=== PATIENT | female | born 1965 | race Caucasian/White ===

== ENCOUNTER 2019-06-18 14:06 | Outpatient (REF) | payer MEDICARE, SELFPAY ==
[2019-06-18 14:47] LABS: Abs Immature Grans 0.02 k/cumm (0.0-0.09); Absolute Basophil Count 0.02 k/cumm (0.0-0.2); Absolute Eosinophil Count 0.13 k/cumm (0.0-0.7); Absolute Lymphocyte Count 0.87 k/cumm (1.2-3.4); Absolute Monocyte Count 0.37 k/cumm (0.11-0.7); Absolute Neutrophil Count 3.69 k/cumm (1.2-6.7); Basophils % 0.4; Eosinophils % 2.5; HCT 31.5 % (36.0-46.0); HGB 9.7 g/dL (12.0-15.5); Immature Grans % 0.4 %; Lymphocytes % 17.1; Mean Corp. HGB Concentration 30.8 g/dL (32.0-36.0); Mean Corpuscular Hemoglobin 24.7 pg (27.0-33.0); Mean Corpuscular Volume 80.4 fL (80-95); Mean Platelet Volume 10.6 fL (8.0-11.0); Monocytes % 7.3; Neutrophils % 72.3; RBC 3.92 m/cumm (4.00-5.20); RBC Distribution Width 18.8 % (11.7-14.6)
[2019-06-18 14:58] LABS: ALT 37 U/L (14-59); AST 50 U/L (15-37); Albumin 3.3 g/dL (3.4-5.0); Alkaline Phosphatase 130 U/L (46-116); BUN 44 mg/dL (7-18); Bilirubin, Total 1.7 mg/dL (0.2-1.0); CREATININE 1.62 mg/dL (0.55-1.02); Calcium 8.6 mg/dL (8.5-10.1); Chloride 98 mmol/L (98-107); Estimated GFR 32.87 (mL/min/1.73m2); Glucose 475 mg/dL (74-106); Potassium 4.5 mmol/L (3.5-5.1); Sodium 133 mmol/L (136-145)
[2019-06-18 15:09] LABS: Platelet Count 69 x1000/uL (130-400)
[2019-06-18 15:11] LABS: Anisocytosis 1+; Diff Comment RBC Morph Reviewed; Hypochromasia 1+; Microcytosis 1+; Polychromasia Present
[2019-06-18 15:12] LABS: Poikilocytes 1+
== END 2019-06-18 14:26 ==
LOC: LBN 14:06
PROVIDERS: Visit Provider Family Medicine
DX: D69.6 Thrombocytopenia, unspecified (principal); I25.10 Atherosclerotic heart disease of native coronary artery without angina pectoris; I50.32 Chronic diastolic (congestive) heart failure
CPT/HCPCS: 80053; 85025

== ENCOUNTER 2021-08-05 19:29 | Outpatient (REF) | payer MEDICARE, SELFPAY ==
[2021-08-05 19:18] LABS: Bilirubin Negative (Negative); Blood Large (Negative); Clarity Sl Cloudy (Clear); Glucose >=1000 mg/dL (Negative); Ketones Negative (Negative); Leukocyte Esterase Small (Negative); Nitrite Positive (Negative); Urobilinogen 0.2 EU/dL (Up TO 0.2)
[2021-08-05 19:33] LABS: Bacteria Many HPF (Negative); C & S Indicated? Yes; Casts Negative LPF (Negative); Crystals Negative HPF (Negative); Epithelial Cells Negative HPF (Negative); Mucus Negative (Negative); Other Cells Negative (Negative); RBC Negative HPF (0-2)
== END 2021-08-05 19:30 | disposition home or self-care (01) ==
LOC: LBN 19:29
PROVIDERS: Visit Provider Family Medicine
DX: N39.0 Urinary tract infection, site not specified (principal); N17.9 Acute kidney failure, unspecified
CPT/HCPCS: 87077; 81003; 81015; 87086; 87186